=== PATIENT | male | born 1990 | race Caucasian/White ===

== ENCOUNTER 2021-12-26 03:29 | Emergency (ER) | payer OTHER ==
[2021-12-26] MEDS ORDERED: Proparacaine 0.5% Ophth Soln 15 ML Bottle EYELF ONE (03:43)
== END 2021-12-26 04:03 | disposition home or self-care (01) ==
LOC: JP.ED 03:29
DX: H16.012 Central corneal ulcer, left eye (principal)
CPT/HCPCS: 99283; A9270